=== PATIENT | female | born 1980 | race Caucasian/White ===

== ENCOUNTER 2019-07-05 01:54 | Emergency (ER) | payer OTHER ==
[2019-07-05 02:10] VITALS: BP 119/74
--- NOTE | 2019-07-05 02:36 | ER Document Report ---
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 She has had a cough for about a week. She states that she "just does not have time to be sick." She denies any fevers or chills. She has had an intermittently productive cough. She took some DayQuil today and states that that is helped her cough significantly, but she feels somewhat jittery. She states she thought she should come here to get checked because the anterior part of her chest was hurting with coughing, and she felt as if it was "getting in her lungs." No nausea or vomiting. Eating and drinking normally. No other acute complaints or concerns. - Related Data Home Medications: unable to recall depression medication Past Medical History - General Information source: Patient - Social History Smoking Status: Never Smoker Frequency of alcohol use: Occasional Drug Abuse: None Family History: Reviewed & Not Pertinent Patient has suicidal ideation: No Patient has homicidal ideation: No Psychiatric Medical History: Reports: Hx Depression Past Surgical History: Reports: Hx Orthopedic Surgery - Neck surgery Review of Systems - Review of Systems Constitutional: No symptoms reported EENT: No symptoms reported Cardiovascular: See HPI Respiratory: See HPI Gastrointestinal: No symptoms reported Genitourinary: No symptoms reported Musculoskeletal: No symptoms reported Skin: No symptoms reported Neurological/Psychological: No symptoms reported Physical Exam - Vital signs Vitals: Temp Pulse Resp BP Pulse Ox 98.5 F 75 16 119/74 99 07/05/19 02:08 07/05/19 02:08 07/05/19 02:08 07/05/19 02:08 07/05/19 02:08 - Notes Notes: This is a pleasant 39-year-old female who appears her stated age in no acute distress. Head is normocephalic and atraumatic. Oral mucosa is moist. Heart is rate and rhythm, lungs are clear to auscultation bilaterally. Mild chest wall tenderness is noted. No posterior calf tenderness noted. Course - Re-evaluation Re-evalutation: 07/05/19 02:36 Patient presents to the emergency department for evaluation. She is concerned that her bronchitis is advanced given her pain. Chest x-ray was ordered. At this point, patient is oxygenating well. Her lungs are clear. I offered her Tessalon Perles here, but she states that she feels her cough is suppressed sufficiently with the DayQuil. I did offer her a prescription for Tessalon Perles as this may suppress her cough without causing her other symptoms secondary to the decongestants. I also recommended just plain Robitussin for cough suppression, and she was amenable to both these plans. I reviewed this patient's x-ray and failed to identify any significant consolidation. Again she is 99% on room air. We will continue to recommend symptomatic treatment, Tylenol or ibuprofen as needed for pain. She is not tachycardic. She has no PE risk factors. She is to follow-up closely with primary care this week, return to the emergency department for worsening or new concerning symptoms of any sort. - Vital Signs Vital signs: Temp Pulse Resp BP Pulse Ox 98.5 F 75 16 119/74 99 07/05/19 02:08 07/05/19 02:08 07/05/19 02:08 07/05/19 02:08 07/05/19 02:08 - Diagnostic Test Radiology reviewed: Image reviewed, Reports reviewed Radiology results interpreted by me: 07/05/19 02:55 Chest X-Ray 07/05/19 00:00 IMPRESSION: No active disease. Discharge - Discharge Clinical Impression: Chest wall pain Acute bronchitis Qualifiers: Bronchitis organism: unspecified organism Qualified Code(s): J20.9 - Acute bronchitis, unspecified Condition: Stable Disposition: HOME, SELF-CARE Instructions: Bronchitis ([facility]), Chest Wall Pain ([facility]) Additional Instructions: Take naproxen as directed, with food, for pain. You can take Tessalon Perles as needed for cough suppression, or consider [id number] Robitussin as discussed. Follow-up with primary care in 1 to 2 weeks. Return to the emergency department with worsening or new concerning symptoms of any sort. Prescriptions: Benzonatate [Tessalon Perles 100 mg Capsule] 100 mg PO Q8HP PRN #40 capsule PRN Reason: Naproxen [Naprosyn] 500 mg PO BID #20 tablet Referrals: CHEN,FERNANDO, PA-C [Primary Care Provider] - Follow up as needed
--- NOTE | 2019-07-05 02:45 | RADIOLOGY REPORT (SQ) ---
Chest 2 view on 07/05/2019 at 2:32 AM CLINICAL INDICATION: Productive cough COMPARISON: None FINDINGS: The lungs are clear. Cardiac, hilar and mediastinal contours are within normal limits. Pulmonary vascularity is within normal limits. There is levoscoliosis of the lower thoracic and upper lumbar spine. No acute bony abnormality is noted. IMPRESSION: No active disease.
== END 2019-07-05 03:02 | disposition home or self-care (01) ==
LOC: ER 01:54
DX: J20.9 Acute bronchitis, unspecified (principal); R07.89 Other chest pain; R05 Cough; F32.9 Major depressive disorder, single episode, unspecified; Z79.899 Other long term (current) drug therapy
CPT/HCPCS: 71046; 99283

== ENCOUNTER → 2020-06-17 | Outpatient (CLI) | payer OTHER ==
[~2020-06-17] MED LIST: COVID-19 VACCINE (PFIZER)/PF 30 MCG/0.3 ML VIAL IM ONE; EPINEPHRINE INJ/PF 1 MG/1 ML AMPULE IM PRN
== END ==
LOC: EMPHEALTH 07:26
PROVIDERS: ATTEND Internal Medicine
DX: Z23 Encounter for immunization (principal)
CPT/HCPCS: 91300